=== PATIENT | female | born 1955 | race Two or more races ===

== ENCOUNTER 2022-02-13 20:53 | Emergency (ER) | payer OTHER ==
[~2022-02-13] VITALS: Ht 162.6 cm; Wt 59.0 kg
--- NOTE | 2022-02-13 22:49 | NUR ---
BIBS FOR C/O TAILBONE PAIN S/P FALL YESTERDAY. AWAKE AND ALERT X4 BREATHING UNLABNORED. PT AMBULATORY WITH STEADY GAIT NO GROSS DEFORMITIES NOTED.
[2022-02-13] MEDS ORDERED: IBUPROFEN 600 MG TABLET PO ONE (23:00)
--- NOTE | 2022-02-13 23:00 | NUR ---
xray at bedside
[2022-02-13] MEDS ORDERED: IBUPROFEN 600 MG TABLET ONE (23:05)
[2022-02-13] MEDS ORDERED: ACETAMINOPHEN ES 500 MG TABLET ONE (23:14)
[2022-02-13] MEDS ORDERED: ACETAMINOPHEN ES 500 MG TABLET PO ONE (23:30)
--- NOTE | 2022-02-14 00:36 | NUR ---
Vazquez yoder in [employer] - 02/14/22 at 0036 by [email or web address] Patient discharged to home in stable condition. Written and verbal after care instructions given. Patient verbalizes understanding of instruction.
--- NOTE | 2022-02-14 00:44 | NUR ---
Patient discharged to home in stable condition. Written and verbal after care instructions given. Patient verbalizes understanding of instruction. pT ambulatory with a steady gait
[2022-02-14 00:48] VITALS: BP 140/74
== END 2022-02-14 00:40 | disposition home or self-care (01) ==
LOC: ER 20:54
DX: S30.0XXA Contusion of lower back and pelvis, initial encounter (principal); I10 Essential (primary) hypertension; E78.5 Hyperlipidemia, unspecified; W01.0XXA Fall on same level from slipping, tripping and stumbling without subsequent striking against object, initial encounter; Y93.89 Activity, other specified; Y92.89 Other specified places as the place of occurrence of the external cause; Y99.8 Other external cause status
CPT/HCPCS: 72220-TC